=== PATIENT | female | born 1985 | race Caucasian/White ===

== ENCOUNTER 2019-03-09 13:53 | Observation (INO) | payer MEDICAID, SELFPAY ==
--- NOTE | 2019-03-09 14:13 | PCM.HP.STD ---
Problem List (1) Heroin withdrawal Status: Acute History of Present Illness Date of Admission: 03/09/19 Chief Complaint: Nausea, yawning, myalgias. The patient is a 33 year old F who injects heroin, last use was at 1700 on the seventh. Since then, patient's been experiencing significant withdrawal symptoms with nausea, abdominal cramps, myalgias, yawning, lacrimation, rhinitis. Patient had gone through withdrawal treatment about 4 months ago and was doing well for about 3 months and then missed a doctor's appointment and then started using again and has been using daily since. Occasionally she will smoke crack cocaine and marijuana. [] Past Medical History Psychiatric History: Anxiety, Depression Smoking Status: Light Smoker (<10/day) Tobacco Use: Cigarettes Alcohol: None Drugs: Cocaine, Heroin, Marijuana - *Family History Maternal Family History: Family History (Last Updated 03/09/19 @ 14:15 by Aguila Champion DO) Other Alcoholism Review of Systems Constitutional: Reports: Chills, Malaise. Denies: Anorexia, Fever, Night Sweats Eyes: Denies: Blurred vision, Double vision HEENT: Denies: Head Aches, Sinus Congestion, Sinus Drainage Cardiovascular: Denies: Chest Pain, Palpitations Respiratory: Denies: Cough, Shortness of breath at rest, Sputum production Gastrointestinal: Reports: Abdominal Pain, Nausea. Denies: Vomiting Genitourinary: Denies: Dysuria Musculoskeletal: Denies: Joint Pain, Joint Tenderness Skin: Denies: Dryness, Jaundice Neurological: Denies: Balance problems, Blurred vision, Double vision, Change in Speech Psychiatric: Reports: Anxiety, Depression Hematologic/ Lymphatic: Denies: Easy Bruising, Easy Bleeding, Hx of blood clot Comment: A 10 point review of systems were negative except as mentioned in the history of present illness and the other review of systems. VTE Information - Inpt Only VTE Present on Admission: No VTE Mechan Device Prophylaxis: None VTE Pharm Prophylaxis ordered?: No Patient Problems: Active and Suspected Problems Heroin withdrawal (Acute) - Physical Exam General: Alert, No apparent distress, - - Anxious. Appears older than stated age. HEENT: Atraumatic, Normocephalic Oral: Moist Mucosa, No Gingival or Mucosal Lesions/ Ulcerations Neck: No Nodes, Thyroid Normal Size and Texture Lungs: Clear to auscultation, Normal air movement, No rhonchi, No wheeze Cardiovascular: Regular rate, Regular Rhythm, Normal S1, Normal S2, No murmurs Abdomen: Bowel Sounds Present, Soft, Non Tender, Non-Distended, No Hepato-splenomegaly Extremities: No edema, No Calf Tenderness Skin: - - Chronic scarring of the upper extremities. No evidence of any cellulitis. Psych/Mental Status: Appropriate, Anxious Assessment/Plan All Active Problems Heroin withdrawal (Acute) 1. Acute heroin withdrawal Intake CINA is 16 Patient will be initiated on buprenorphine taper and will have other medications to help with other somatic complaints associated with her withdrawal. Patient informed that the buprenorphine will be given scheduled but the other medications will be as needed [facility] to work with the patient in finding and facility after discharge to continue with her addiction treatment. 2. VT prophylaxis: Low risk. No chemical nor mechanical prophylaxis indicated at this time Code Visit Inpatient E&M: 74571 Init Hosp L2
[2019-03-09 14:15] VITALS: BMI 25.0
--- NOTE | 2019-03-09 14:18 | HP.PCM_ITS ---
Problem List (1) Heroin withdrawal Status: Acute History of Present Illness Date of Admission: 03/09/19 Chief Complaint: Nausea, yawning, myalgias. The patient is a 33 year old F who injects heroin, last use was at 1700 on the seventh. Since then, patient's been experiencing significant withdrawal symptoms with nausea, abdominal cramps, myalgias, yawning, lacrimation, rhinitis. Patient had gone through withdrawal treatment about 4 months ago and was doing well for about 3 months and then missed a doctor's appointment and then started using again and has been using daily since. Occasionally she will smoke crack cocaine and marijuana. [] Past Medical History Psychiatric History: Anxiety, Depression Smoking Status: Light Smoker (<10/day) Tobacco Use: Cigarettes Alcohol: None Drugs: Cocaine, Heroin, Marijuana - *Family History Maternal Family History: Family History (Last Updated 03/09/19 @ 14:15 by Aguila Champion DO) Other Alcoholism Review of Systems Constitutional: Reports: Chills, Malaise. Denies: Anorexia, Fever, Night Sweats Eyes: Denies: Blurred vision, Double vision HEENT: Denies: Head Aches, Sinus Congestion, Sinus Drainage Cardiovascular: Denies: Chest Pain, Palpitations Respiratory: Denies: Cough, Shortness of breath at rest, Sputum production Gastrointestinal: Reports: Abdominal Pain, Nausea. Denies: Vomiting Genitourinary: Denies: Dysuria Musculoskeletal: Denies: Joint Pain, Joint Tenderness Skin: Denies: Dryness, Jaundice Neurological: Denies: Balance problems, Blurred vision, Double vision, Change in Speech Psychiatric: Reports: Anxiety, Depression Hematologic/ Lymphatic: Denies: Easy Bruising, Easy Bleeding, Hx of blood clot Comment: A 10 point review of systems were negative except as mentioned in the history of present illness and the other review of systems. VTE Information - Inpt Only VTE Present on Admission: No VTE Mechan Device Prophylaxis: None VTE Pharm Prophylaxis ordered?: No Patient Problems: Active and Suspected Problems Heroin withdrawal (Acute) - Physical Exam General: Alert, No apparent distress, - - Anxious. Appears older than stated age. HEENT: Atraumatic, Normocephalic Oral: Moist Mucosa, No Gingival or Mucosal Lesions/ Ulcerations Neck: No Nodes, Thyroid Normal Size and Texture Lungs: Clear to auscultation, Normal air movement, No rhonchi, No wheeze Cardiovascular: Regular rate, Regular Rhythm, Normal S1, Normal S2, No murmurs Abdomen: Bowel Sounds Present, Soft, Non Tender, Non-Distended, No Hepato- splenomegaly Extremities: No edema, No Calf Tenderness Skin: - - Chronic scarring of the upper extremities. No evidence of any cellulitis. Psych/Mental Status: Appropriate, Anxious Assessment/Plan All Active Problems Heroin withdrawal (Acute) 1. Acute heroin withdrawal * Intake CINA is 16 * Patient will be initiated on buprenorphine taper and will have other medications to help with other somatic complaints associated with her withdrawal. Patient informed that the buprenorphine will be given scheduled but the other medications will be as needed * [facility] to work with the patient in finding and facility after discharge to continue with her addiction treatment. 2. VT prophylaxis: Low risk. No chemical nor mechanical prophylaxis indicated at this time Code Visit Inpatient E&M: 08419 Init Hosp L2
[2019-03-09 14:41] VITALS: BMI 25.0
[2019-03-09] MEDS: Dicyclomine 10 MG Capsule 20 MG PO (14:41)
[2019-03-09] MEDS: Buprenorphine HCl 2 MG TAB.SUBL SL ×2 (14:41→23:07)
[2019-03-09] MEDS: cloNIDine HCl 0.1 MG Tablet PO ×3 (14:41→23:34)
[2019-03-09] MEDS: Pramipexole Di-HCl 0.25 MG Tablet PO (14:44)
[2019-03-09] MEDS: Methocarbamol 750 MG Tablet PO ×2 (14:44→23:34)
[2019-03-09 14:55] LABS: Amphetamine Urine VISTA NEGATIVE (<1000 ng/mL); Barbiturate Urine VISTA NEGATIVE (< 200 ng/mL); Benzodiazepine Urine VISTA NEGATIVE (< 200 ng/mL); Cocaine Urine VISTA POSITIVE (< 300 ng/mL); Ecstacy Urine VISTA NEGATIVE (< 500 ng/mL); Methadone Urine VISTA NEGATIVE (< 300 ng/mL); PCP Urine VISTA NEGATIVE (< 25 ng/mL); THC Urine VISTA NEGATIVE (< 50 ng/mL); Vista UDS pH Range 6
[2019-03-09 15:20] LABS: Absolute Lymphocyte Count 1.15 X10^3/ul (0.83-4.51); Absolute Neutrophil Count 3.5 X10^3/uL (2.0-7.7); Basophil# 0.03 X10^3/uL; Basophil% 0.6 % (0-1); Eosinophil# 0.01 X10^3/uL; Eosinophils% 0.2 % (0-5); Hematocrit 43.1 % (37-47); Lymphocyte # 1.15 X10^3/ul (4.0); Lymphocyte % 23.6 % (19-41); Mean Corp Hgb Conc 32.5 g/gl (32-36); Mean Corpuscular Hgb 28.2 pg (27.0-32.0); Mean Corpuscular Volume 86.7 fL (81-99); Mean Platelet Vol. 10.4 fl (6.2-12.0); Monocyte% 4.1 % (0-10); Neutrophil # 3.47 X10^3/uL (2.7-7.7); Neutrophil % 71.3 % (47-70); POSITIVE COUNT NO; POSITIVE DIFFERENTIAL NO; POSITIVE MORPHOLOGY NO; Platelet Count 175 K/mm3 (150-450); RBC Distribution Width CV 14.6 % (11.6-14.6); RBC Distribution Width SD 46.5 fl (35.1-43.9); Red Blood Count 4.97 M/mm3 (4.2-5.4); White Blood Count 4.9 K/mm3 (4.4-11.0)
[2019-03-09 15:37] LABS: ALB/GLOB Ratio 0.9 RATIO (0.9-2.4); AST(SGOT) 65 U/L (15-37); Alanine Aminotransfer ALT/SGPT 142 U/L (13-56); Albumin, Serum 3.7 g/dL (3.2-5.0); Alkaline Phosphatase 71 U/L (45-117); Anion Gap 4 (5-15); BUN 10 mg/dL (7-18); BUN/Creat Ratio 11.5 RATIO (10-20); Calcium,Total 8.9 mg/dL (8.5-10.1); Chloride 103 mmol/L (98-107); Creatinine, Serum 0.87 mg/dL (0.55-1.02); EST Glomerular Filtration Rate 80 mL/min (>60); Est Glom Filt Rate - Afr Amer 97 mL/min (>60); Estimated Creatinine Clearance 100.39 ml/min; Glucose 105 mg/dL (74-106); Potassium 4.3 mmol/L (3.5-5.1); Protein, Total 7.7 g/dL (6.4-8.2); Sodium Level 138 mmol/L (136-145)
[2019-03-09 15:38] LABS: Pregnancy, Serum, hCG Quali. NEGATIVE Negative (0-9 Nonpreg)
[2019-03-09 16:20] VITALS: BP 120/81; PULSE 61; RESP 14; TEMP 36.8
[2019-03-09 18:00] VITALS: BP 109/70; PULSE 76; RESP 14; TEMP 36.7
[2019-03-09 20:00] VITALS: BP 98/63; PULSE 61; RESP 16; TEMP 36.8
[2019-03-09] MEDS: traZODone 50 MG Tablet PO (23:07)
[2019-03-09] MEDS: hydrOXYzine PAM 25 MG Capsule 50 MG PO (23:07)
[2019-03-09 23:28] VITALS: BP 110/75; PULSE 73; RESP 16; TEMP 36.6
[2019-03-10 03:35] VITALS: BP 88/55; PULSE 54; RESP 16; TEMP 36.7
[2019-03-10 06:08] VITALS: BP 91/56; PULSE 56; RESP 16; TEMP 36.6
[2019-03-10] MEDS: Buprenorphine HCl 2 MG TAB.SUBL SL ×3 (06:13→22:29)
--- NOTE | 2019-03-10 09:43 | PN_ITS ---
Patient Problems: Active and Suspected Problems Heroin withdrawal (Acute) Subjective: The patient is a 33-year-old female with a past medical history of hepatitis C admitted to the [facility] program for acute opiate withdrawal. Withdrawal symptoms at admission included nausea, abdominal pain, myalgias, lacrimation and rhinitis. She has previously been in a withdrawal treatment program, about 4 months ago, and did well for 3 months. She then missed a doctor's appointment and started using again. In addition to heroin she occasionally will smoke crack cocaine and marijuana. The [facility] protocol for acute opiate withdrawal was initiated at admission and the patient is currently on a buprenorphine taper. Significant lab included an increased AST at 65 and an ALT of 142. Bilirubin and alkaline phosphatase are within normal limits. Serum test was negative. Drug screen was positive for cocaine and opiates. She is afebrile. Heart rate and blood pressure have decreased since admission, likely secondary to multiple medications for acute opiate withdrawal. She is asymptomatic. She admits to sharing needles and knows that she shared a needle with somebody who later turned positive for hepatitis B. Her last HIV was 2 years ago and was negative. Symptoms are adequately controlled other than feeling anxious and a little sweaty. She is complaining of vaginal discharge but denies dysuria or vaginal itching. Has had Chlamydia in the past. Denies Gonorrhea and syphilis Objective: PHYSICAL EXAM: GENERAL: alert, oriented X 3, Cooperative, NAD ORAL: moist mucosa, no mucosal lesions NECK: No JVD, supple, trachea midline LUNGS: CTA, symmetric chest expansion HEART: RRR, Normal S1 and S2, no rub, no gallop ABDOMEN: soft, NT, ND, BS present, no guarding with palpation EXTREMITIES: no edema, no cyanosis, no calf tenderness SKIN: No rashes, no breakdown, no evidence of cellulitis secondary to injections NEUROLOGIC: no focal neurologic deficits PSYCH: appropriate, normal affect, pleasant - Physical Exam Vital Signs Temp Pulse Resp BP 97.8 F 56 L 16 91/56 L 03/10/19 06:08 03/10/19 06:08 03/10/19 06:08 03/10/19 06:08 Weight: 174 lb Body Mass Index (BMI) 25.0 Intake and Output for Last 24 Hours 03/08/19 03/09/19 03/10/19 23:59 23:59 23:59 Intake Total 400 / 400 Balance 400 / 400 Laboratory Tests Past 24 Hrs 03/09/19 03/09/19 03/09/19 14:15 14:55 14:55 WBC 4.9 RBC 4.97 Hgb 14.0 Hct 43.1 MCV 86.7 MCH 28.2 MCHC 32.5 RDW 14.6 RDW Differential 46.5 H Plt Count 175 MPV 10.4 Immature Gran % (Auto) 0.200 Neut % (Auto) 71.3 H Lymph % (Auto) 23.6 [place] % (Auto) 4.1 Eos % (Auto) 0.2 Baso % (Auto) 0.6 Absolute Neuts (auto) 3.5 Absolute Lymphs (auto) 1.15 Total Counted Not Reportable Sodium 138 Potassium 4.3 Chloride 103 Carbon Dioxide 31.0 Anion Gap 4 L BUN 10 Creatinine 0.87 Estim Creat Clear Calc 100.39 Est GFR (MDRD) Af Amer 97 Est GFR (MDRD) Non-Af 80 BUN/Creatinine Ratio 11.5 Glucose 105 Calcium 8.9 Total Bilirubin 0.40 AST 65 H ALT 142 H Alkaline Phosphatase 71 Total Protein 7.7 Albumin 3.7 Globulin 4.0 Albumin/Globulin Ratio 0.9 Serum , Qual Urine Opiates Screen POSITIVE H Urine Methadone Screen NEGATIVE Ur Barbiturates Screen NEGATIVE Ur Phencyclidine Scrn NEGATIVE Ur Amphetamines Screen NEGATIVE U Methamphetamin-MDMA NEGATIVE U Benzodiazepines Scrn NEGATIVE Urine Cocaine Screen POSITIVE H U Cannabinoids Screen NEGATIVE Ur Drug Screen Comment 03/09/19 14:55 WBC RBC Hgb Hct MCV MCH MCHC RDW RDW Differential Plt Count MPV Immature Gran % (Auto) Neut % (Auto) Lymph % (Auto) [place] % (Auto) Eos % (Auto) Baso % (Auto) Absolute Neuts (auto) Absolute Lymphs (auto) Total Counted Sodium Potassium Chloride Carbon Dioxide Anion Gap BUN Creatinine Estim Creat Clear Calc Est GFR (MDRD) Af Amer Est GFR (MDRD) Non-Af BUN/Creatinine Ratio Glucose Calcium Total Bilirubin AST ALT Alkaline Phosphatase Total Protein Albumin Globulin Albumin/Globulin Ratio Serum , Qual NEGATIVE Urine Opiates Screen Urine Methadone Screen Ur Barbiturates Screen Ur Phencyclidine Scrn Ur Amphetamines Screen U Methamphetamin-MDMA U Benzodiazepines Scrn Urine Cocaine Screen U Cannabinoids Screen Ur Drug Screen Comment Medical Necessity - Tobacco Use Smoking Status: Light Smoker (<10/day) Tobacco Use: Cigarettes Assessment/Plan All Active Problems Heroin withdrawal (Acute) Impressions 1. Acute heroin withdrawal. On a buprenorphine taper. Interested in Vivitrol post discharge. 2. Hepatitis C. Shares needles. 3. Vaginitis - will do a bedside pelvic later today. 4. Tobacco dependence Hepatitis panel, HIV Continue [facility] protocol for acute opiate withdrawal Code Visit Inpatient E&M: 89362 Subs Hosp L2
[2019-03-10 10:00] VITALS: BP 118/72; PULSE 63; RESP 14; TEMP 36.3
[2019-03-10] MEDS: hydrOXYzine PAM 25 MG Capsule 50 MG PO ×2 (10:20→20:34)
[2019-03-10] MEDS: Acetaminophen 500 MG Tablet PO ×2 (10:20→20:34)
[2019-03-10] MEDS: Pramipexole Di-HCl 0.25 MG Tablet PO (10:20)
--- NOTE | 2019-03-10 11:05 | NEWVISION ---
Addendum entered by Shaneka Fleming 03/12/19 08:01: Patient reports that she may have issues with transportation on day of discharge. [facility] to provide Medicaid transportation information for patient to call if needed. Original Note: Patient has appointment at [facility] on 03/12/2019 at 3pm for MAT assessment ([place]). Please discharge patient by 11am on day of discharge.
[2019-03-10 12:03] LABS: HIV - WCH Non-Reactive (Nonreactive)
[2019-03-10 14:00] VITALS: BP 87/54; PULSE 63; RESP 14; TEMP 37.1
[2019-03-10] MEDS: Ibuprofen 600 MG Tablet PO (14:56)
[2019-03-10 22:26] VITALS: BP 100/69; PULSE 67; RESP 16; TEMP 36.6
[2019-03-10] MEDS: traZODone 50 MG Tablet PO (22:29)
[2019-03-10] MEDS: cloNIDine HCl 0.1 MG Tablet PO (22:33)
[2019-03-11 05:56] VITALS: BP 95/53; PULSE 55; RESP 14; TEMP 36.6
[2019-03-11] MEDS: Buprenorphine HCl 2 MG TAB.SUBL SL ×2 (06:00→18:47)
[2019-03-11] MEDS: Ibuprofen 600 MG Tablet PO ×2 (06:43→14:43)
[2019-03-11] MEDS: hydrOXYzine PAM 25 MG Capsule 50 MG PO (06:43)
[2019-03-11 07:46] VITALS: BP 107/69; PULSE 56; RESP 18; TEMP 36.6
[2019-03-11] MEDS: Methocarbamol 750 MG Tablet PO (07:50)
[2019-03-11] MEDS: Pramipexole Di-HCl 0.25 MG Tablet PO ×2 (07:50→21:45)
[2019-03-11 07:51] VITALS: PULSE 56
--- NOTE | 2019-03-11 09:26 | PCM.PROGNOTE ---
Patient Problems: Active and Suspected Problems Heroin withdrawal (Acute) Subjective: Afebrile Vital signs stable Good oral intake HIV is nonreactive Hepatitis panel is pending No complaints other than vaginal DC and some odor. 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 - Physical Exam General: Alert, Oriented x3, Cooperative, No apparent distress Oral: Moist Mucosa Lungs: Clear to auscultation Cardiovascular: Regular rate, Regular Rhythm Abdomen: Bowel Sounds Present, Soft, Non Tender, Non-Distended, - - The Labia minora have a small small ulceration on both sides consistent with Herpes. The external vaginal exam is otherwise unremarkable. There is yellow malodorous DC in the Vaginal vault and a culture was sent. Negative chandilier's sign. Cervix appeared normal and was without lesions. She has not had a PAP in at least 3 years and she has a hx of STD. I encouraged her to go get a PAP ....we discussed HPV and she should be tested. Extremities: No edema Skin: No rashes Psych/Mental Status: Normal Affect, Appropriate Vital Signs Temp Pulse Resp BP 97.9 F 56 L 18 107/69 03/11/19 07:46 03/11/19 07:51 03/11/19 07:46 03/11/19 07:46 Oxygen Delivery Method Room Air Weight: 174 lb Body Mass Index (BMI) 25.0 Intake and Output for Last 24 Hours 03/09/19 03/10/19 03/11/19 23:59 23:59 23:59 Intake Total 400 / 400 1500 / 1500 Balance 400 / 400 1500 / 1500 Laboratory Tests Past 24 Hrs 03/10/19 03/10/19 10:20 10:20 Hepatitis A IgM Ab Pending Hepatitis A Ab Total Pending Hep Bs Antigen Pending Hep B Core Total Ab Pending Hep B Core IgM Ab Pending HIV 1&2 Antibody Non-Reactive Medical Necessity - Tobacco Use Smoking Status: Light Smoker (<10/day) Tobacco Use: Cigarettes Assessment/Plan All Active Problems Heroin withdrawal (Acute) Impressions 1. Acute heroin withdrawal. On a buprenorphine taper. Interested in Vivitrol post discharge. 2. Hepatitis C. Shares needles. 3. Vaginitis - will do a bedside pelvic later today. 4. Tobacco dependence 5. Hepatitis B positive with persistently + HepBsAG - chronic active hep B Urine sample sent for GC and chlamydia swab of Vaginal DC sent for culture.....suspect she has bacterial vaginosis Start Flagyl and Acyclovir - not a primary herpes infection Await the results of the GC/chlamydia testing Continue buprenorphine taper she has set up an appointment to start Vivitrol as an outpatient. I advised her to have a Pap smear done after treatment for herpes and bacterial vaginosis has completed and especially to be tested for HPV Discussed the results of the hepatitis panel with the patient and recommended that after 6 months of sobriety she follow-up with infectious disease to be treated for hepatitis C Code Visit Inpatient E&M: [id number] Subs Hosp L3
[2019-03-11 12:06] LABS: HEPATITIS B SURFACE AG Confirm. indicated (Negative); Hepatitis A AB, Total Negative (Negative); Hepatitis A IgM Antibody Negative (Negative); Hepatitis B Core AB IgM Negative (Negative); Hepatitis B Core Ab Total Positive (Negative)
--- NOTE | 2019-03-11 13:07 | CHAPLAIN ---
Type of Pastoral Visit _x__ Initial Visit ___ Follow-up Visit ___ On-call Visit ___ General Patient Visit ___ Spiritual Assessment ___ Family Conference ___ Bereavement ___ Rapid Response ___ Code Blue ___ Other (describe below) Pastoral Care Referral From _x__ Patient ___ Family ___ Nurse ___ Physician ___ Manager Hematology ___ Volleyball Referee _x__ Other (describe below) Sacrament/Intervention _x__ Active listening ___ Anointing ___ Anabaptist ___ Bereavement ___ Communion ___ Ines exploration ___ _x__ Life review _x_ Prayer ___ Reconciliation ___ Sacrament of Sick _x__ Supportive presence ___ Wedding ___ Other (describe below) Pastoral Comments patient commented at end of visit that she appreciated the thoughtful prayer and the encouraging words; pt says that most of her family is unaware of her addiction and of her hospital stay; pt has a best friend that is 5 years clean and is a big inspiration; pt wants to try different approach to recovery than in the past; pt open to spiritual support
[2019-03-11 13:37] LABS: Chlamydia Trachomatis by PCR POSITIVE (Negative); Neisserai gonorrhoeae by PCR Negative (Negative); Probe Check PASS; Sample Adequacy Control PASS; Specimen Processing Control PASS
[2019-03-11] MEDS: metroNIDAZOLE 500 MG Tablet PO ×2 (14:40→21:42)
[2019-03-11] MEDS: Acyclovir 200 MG Capsule 400 MG PO ×2 (14:40→21:42)
[2019-03-11 14:43] VITALS: BP 106/68; PULSE 73; RESP 18; TEMP 36.9
[2019-03-11] MEDS: cloNIDine HCl 0.1 MG Tablet PO ×2 (14:43→21:08)
[2019-03-11 15:20] LABS: HBsAg Confirmation Positive (.); Hep B Surface Antibodies Non Reactive (.)
[2019-03-11 15:23] LABS: Hepatitis C Ab >11.0 s/co ratio (0.0-0.9)
[2019-03-11] MEDS: Azithromycin 250 MG Tablet 1000 MG PO (18:46)
[2019-03-11] MEDS: Dicyclomine 10 MG Capsule 20 MG PO (21:08)
[2019-03-11] MEDS: traZODone 50 MG Tablet PO (21:42)
[2019-03-11 21:48] VITALS: BP 107/73; PULSE 62; RESP 16; TEMP 36.4
[2019-03-12] MEDS: Buprenorphine HCl 2 MG TAB.SUBL SL (05:46)
[2019-03-12] MEDS: Ibuprofen 600 MG Tablet PO (05:47)
[2019-03-12] MEDS: Acyclovir 200 MG Capsule 400 MG PO (05:47)
[2019-03-12] MEDS: metroNIDAZOLE 500 MG Tablet PO (05:47)
[2019-03-12 05:48] VITALS: BP 108/74; PULSE 56; RESP 16; TEMP 36.9
[2019-03-12 08:22] VITALS: BP 110/72; PULSE 62; RESP 18; TEMP 36.8
--- NOTE | 2019-03-12 10:20 | DCINST_ITS ---
- Discharge Diagnoses Current Active Problems: Current Active and Chronic Problems Heroin withdrawal (Acute) You will use the following diet at home:: No restrictions Your food should be the consistency of: Regular Your liquids should be the consistency of: Regular/Thin Discharge Activity: Return to Normal Activity Instructions: Understanding Hepatitis C (HCV), Understanding Hepatitis B (HBV), Treating Hepatitis B (HBV), Hepatitis C: Preventing the Spread, Herpes: Caring for Sores, Living with Herpes, Chlamydia Additional Instructions: The Hep B is active and you should follow up with your PCP to have the hepatitis panel rechecked in 6 weeks to see if HepsAG has been cleared from your blood. While you have HepBsAG (hepatitis B surface antigen) you are considered to have active Hep B with ongoing infection. Some people develop chronic active Hep B and this can seriously damage the liver....meghna if you also have hepatitis C. If you stay clean for 6 months follow up with an infectious disease doctor to get the Hep C treated. If your eye or skin turn yellow or you get very tired go to a doctor immediately and have the liver enzymes checked. You had chlamydia. We treated you for this with a single dose of Azithromycin 1 GM and you will not need any additional treatment. The gonorrhea was negative. The vaginal culture is still pending.....I will follw the results and call you if there is anything growing. I am keeping you on Flagyl to treat for bacterial infection. Herpes genitalis can be recurrent. Usually the recurrences are not as painful as the initial infection. If you have infrequent recurrences you can be treated with Valtrex 500 mg twice daily for 5 days. If the recurrences are freequent then you will need to be on chronic suppression with Valtrex. You need to get a PAP smear and tested for HPV. HPV is another sexually transmitted virus that is a major cause of cervical cancer........There is a vaccine available if you are negative for HPV. ALWAYS use condoms. You are contagious with Hep B and Hep C at this time and you do not want to spread the disease. You can also spread Herpes even if you do not have active lesions. You are HIV negative......protect yourself from getting any more STD's USE CONDOMS AND DO NOT SHARE NEEDLES. Pending Tests on Discharge: VAGINAL CULTURE Allergies/Adverse Reactions: Allergies No Known Allergies Allergy (Verified 03/09/19 14:16) Medications to take at Discharge Metronidazole [Flagyl] 500 mg PO TID #12 tab 03/12/19 Valacyclovir HCl [Valtrex] 500 mg PO BID #8 tab 03/12/19 The following prescriptions were given: Valacyclovir HCl [Valtrex] 500 mg PO BID #8 tab Metronidazole [Flagyl] 500 mg PO TID #12 tab Primary Care Physician: Care Physician,No Primary [Primary Care Provider] - Test Results: Test results from this visit will be discussed in further detail at your follow- up appointment, if applicable. Proposed Discharge Date: 03/12/19
--- NOTE | 2019-03-12 10:49 | DS.PCM_ITS ---
Discharge Date and Diagnosis - Problem List Patient Problems: Active and Suspected Problems Hepatitis B (Acute) Bacterial vaginosis (Suspected) Herpes genitalis (Acute) Chlamydia infection (Acute) Date of Admission: 03/09/19 Date of Discharge: 03/12/19 - Primary Discharge Diagnosis Active and Suspected Problems Hepatitis B (Acute)- Hep BsAG + and core AB + Bacterial vaginosis (Suspected) Herpes genitalis (Acute) Chlamydia infection (Acute) Heroin withdrawal (Acute) - Secondary Discharge Diagnosis Chronic Problems Hepatitis C antibody positive in blood (Chronic) Herpes genitalis Heroin dependence Tobacco dependence Hospital Course and Treatment Imaging Results: Laboratory Tests 03/11/19 03/10/19 03/10/19 Range/Units 10:55 10:20 10:20 WBC (4.4-11.0) K/mm3 RBC (4.2-5.4) M/mm3 Hgb (12.0-15.0) g/dl Hct (37-47) % MCV (81-99) fL MCH (27.0-32.0) pg MCHC (32-36) g/gl RDW (11.6-14.6) % RDW Differential (35.1-43.9) fl Plt Count (150-450) K/mm3 MPV (6.2-12.0) fl Immature Gran % (Auto) (0.0-0.9) % Neut % (Auto) (47-70) % Lymph % (Auto) (19-41) % Blair % (Auto) (0-10) % Eos % (Auto) (0-5) % Baso % (Auto) (0-1) % Absolute Neuts (auto) (2.0-7.7) X10^3/uL Absolute Lymphs (auto) (0.83-4.51) X10^3/ul Total Counted Sodium (136-145) mmol/L Potassium (3.5-5.1) mmol/L Chloride (98-107) mmol/L Carbon Dioxide (21.0-32.0) mmol/L Anion Gap (5-15) BUN (7-18) mg/dL Creatinine (0.55-1.02) mg/dL Estim Creat Clear Calc ml/min Est GFR (MDRD) Af Amer (>60) mL/min Est GFR (MDRD) Non-Af (>60) mL/min BUN/Creatinine Ratio (10-20) RATIO Glucose (74-106) mg/dL Calcium (8.5-10.1) mg/dL Total Bilirubin (0.20-1.00) mg/dL AST (15-37) U/L ALT (13-56) U/L Alkaline Phosphatase (45-117) U/L Total Protein (6.4-8.2) g/dL Albumin (3.2-5.0) g/dL Globulin (2.2-4.2) g/dL Albumin/Globulin Ratio (0.9-2.4) RATIO Serum , Qual (0-9 Nonpreg) Negative Urine Opiates Screen (< 300 ng/mL) Urine Methadone Screen (< 300 ng/mL) Ur Barbiturates Screen (< 200 ng/mL) Ur Phencyclidine Scrn (< 25 ng/mL) Ur Amphetamines Screen (<1000 ng/mL) U Methamphetamin-MDMA (< 500 ng/mL) U Benzodiazepines Scrn (< 200 ng/mL) Urine Cocaine Screen (< 300 ng/mL) U Cannabinoids Screen (< 50 ng/mL) Ur Drug Screen Comment Chlam trachomat DNA PCR POSITIVE H (Negative) Hepatitis A IgM Ab Negative (Negative) Hepatitis A Ab Total Negative (Negative) Hep Bs Antigen Confirm. indicated (Negative) Hep Bs Ag Confirmation Positive H (.) Hep B Core Total Ab Positive H (Negative) Hep B Core IgM Ab Negative (Negative) Hepatitis C Ab Confirm >11.0 H (0.0-0.9) s/co ratio HIV 1&2 Antibody Non-Reactive (Nonreactive) N.gonorrhoeae DNA (PCR) Negative (Negative) 03/09/19 03/09/19 03/09/19 Range/Units 14:55 14:55 14:55 WBC 4.9 (4.4-11.0) K/mm3 RBC 4.97 (4.2-5.4) M/mm3 Hgb 14.0 (12.0-15.0) g/dl Hct 43.1 (37-47) % MCV 86.7 (81-99) fL MCH 28.2 (27.0-32.0) pg MCHC 32.5 (32-36) g/gl RDW 14.6 (11.6-14.6) % RDW Differential 46.5 H (35.1-43.9) fl Plt Count 175 (150-450) K/mm3 MPV 10.4 (6.2-12.0) fl Immature Gran % (Auto) 0.200 (0.0-0.9) % Neut % (Auto) 71.3 H (47-70) % Lymph % (Auto) 23.6 (19-41) % Blair % (Auto) 4.1 (0-10) % Eos % (Auto) 0.2 (0-5) % Baso % (Auto) 0.6 (0-1) % Absolute Neuts (auto) 3.5 (2.0-7.7) X10^3/uL Absolute Lymphs (auto) 1.15 (0.83-4.51) X10^3/ul Total Counted Not Reportable Sodium 138 (136-145) mmol/L Potassium 4.3 (3.5-5.1) mmol/L Chloride 103 (98-107) mmol/L Carbon Dioxide 31.0 (21.0-32.0) mmol/L Anion Gap 4 L (5-15) BUN 10 (7-18) mg/dL Creatinine 0.87 (0.55-1.02) mg/dL Estim Creat Clear Calc 100.39 ml/min Est GFR (MDRD) Af Amer 97 (>60) mL/min Est GFR (MDRD) Non-Af 80 (>60) mL/min BUN/Creatinine Ratio 11.5 (10-20) RATIO Glucose 105 (74-106) mg/dL Calcium 8.9 (8.5-10.1) mg/dL Total Bilirubin 0.40 (0.20-1.00) mg/dL AST 65 H (15-37) U/L ALT 142 H (13-56) U/L Alkaline Phosphatase 71 (45-117) U/L Total Protein 7.7 (6.4-8.2) g/dL Albumin 3.7 (3.2-5.0) g/dL Globulin 4.0 (2.2-4.2) g/dL Albumin/Globulin Ratio 0.9 (0.9-2.4) RATIO Serum , Qual NEGATIVE (0-9 Nonpreg) Negative Urine Opiates Screen (< 300 ng/mL) Urine Methadone Screen (< 300 ng/mL) Ur Barbiturates Screen (< 200 ng/mL) Ur Phencyclidine Scrn (< 25 ng/mL) Ur Amphetamines Screen (<1000 ng/mL) U Methamphetamin-MDMA (< 500 ng/mL) U Benzodiazepines Scrn (< 200 ng/mL) Urine Cocaine Screen (< 300 ng/mL) U Cannabinoids Screen (< 50 ng/mL) Ur Drug Screen Comment Chlam trachomat DNA PCR (Negative) Hepatitis A IgM Ab (Negative) Hepatitis A Ab Total (Negative) Hep Bs Antigen (Negative) Hep Bs Ag Confirmation (.) Hep B Core Total Ab (Negative) Hep B Core IgM Ab (Negative) Hepatitis C Ab Confirm (0.0-0.9) s/co ratio HIV 1&2 Antibody (Nonreactive) N.gonorrhoeae DNA (PCR) (Negative) 03/09/19 Range/Units 14:15 WBC (4.4-11.0) K/mm3 RBC (4.2-5.4) M/mm3 Hgb (12.0-15.0) g/dl Hct (37-47) % MCV (81-99) fL MCH (27.0-32.0) pg MCHC (32-36) g/gl RDW (11.6-14.6) % RDW Differential (35.1-43.9) fl Plt Count (150-450) K/mm3 MPV (6.2-12.0) fl Immature Gran % (Auto) (0.0-0.9) % Neut % (Auto) (47-70) % Lymph % (Auto) (19-41) % Blair % (Auto) (0-10) % Eos % (Auto) (0-5) % Baso % (Auto) (0-1) % Absolute Neuts (auto) (2.0-7.7) X10^3/uL Absolute Lymphs (auto) (0.83-4.51) X10^3/ul Total Counted Sodium (136-145) mmol/L Potassium (3.5-5.1) mmol/L Chloride (98-107) mmol/L Carbon Dioxide (21.0-32.0) mmol/L Anion Gap (5-15) BUN (7-18) mg/dL Creatinine (0.55-1.02) mg/dL Estim Creat Clear Calc ml/min Est GFR (MDRD) Af Amer (>60) mL/min Est GFR (MDRD) Non-Af (>60) mL/min BUN/Creatinine Ratio (10-20) RATIO Glucose (74-106) mg/dL Calcium (8.5-10.1) mg/dL Total Bilirubin (0.20-1.00) mg/dL AST (15-37) U/L ALT (13-56) U/L Alkaline Phosphatase (45-117) U/L Total Protein (6.4-8.2) g/dL Albumin (3.2-5.0) g/dL Globulin (2.2-4.2) g/dL Albumin/Globulin Ratio (0.9-2.4) RATIO Serum , Qual (0-9 Nonpreg) Negative Urine Opiates Screen POSITIVE H (< 300 ng/mL) Urine Methadone Screen NEGATIVE (< 300 ng/mL) Ur Barbiturates Screen NEGATIVE (< 200 ng/mL) Ur Phencyclidine Scrn NEGATIVE (< 25 ng/mL) Ur Amphetamines Screen NEGATIVE (<1000 ng/mL) U Methamphetamin-MDMA NEGATIVE (< 500 ng/mL) U Benzodiazepines Scrn NEGATIVE (< 200 ng/mL) Urine Cocaine Screen POSITIVE H (< 300 ng/mL) U Cannabinoids Screen NEGATIVE (< 50 ng/mL) Ur Drug Screen Comment Chlam trachomat DNA PCR (Negative) Hepatitis A IgM Ab (Negative) Hepatitis A Ab Total (Negative) Hep Bs Antigen (Negative) Hep Bs Ag Confirmation (.) Hep B Core Total Ab (Negative) Hep B Core IgM Ab (Negative) Hepatitis C Ab Confirm (0.0-0.9) s/co ratio HIV 1&2 Antibody (Nonreactive) N.gonorrhoeae DNA (PCR) (Negative) none Operations: None Summary of Care Provided: Subjective: The patient is a 33-year-old female with a past medical history of hepatitis C, herpes Genitalis, genital chlamydia infection in the past and nicotine dependence who was admitted to the [facility] for acute opiate withd trevor. Withdrawal symptoms at admission included nausea, abdominal pain, myalgias, lacrimation and rhinitis. She had previously been in a withdrawal treatment program, about 4 months ago, and did well for 3 months on Suboxone. She then missed a doctor's appointment and started using heroin again. In addition to heroin she occasionally will smoke crack cocaine and marijuana. The [facility] protocol for acute opiate withdrawal was initiated at admission and the patient was started on a buprenorphine taper. Significant lab included an increased AST at 65 and an ALT of 142. Bilirubin and alkaline phosphatase are within normal limits. Serum test was negative. Drug screen was positive for cocaine and opiates. On the second day she complained of pain when urinating and a vaginal DC. A pelvic exam revealed ulcerations of the labia consistent with recurrent Herpes infection. There was a malodorous yellow vaginal DC and chlamydia was +. GC was negative. Results of the vaginal culture are still pending at the time of DC. She was treated with 1 g of azithromycin for chlamydia infection. She was started on acyclovir for recurrent herpes and metronidazole for suspected bacterial vaginosis. Hepatitis panel was positive for hepatitis C and also for hepatitis B surface antigen and hepatitis B core antibody the hepatitis B core IgM antibody was negative. An HIV was negative. On 03/12/2019 she was afebrile with stable vital signs. She was alert and oriented x3 and appropriate. She had no withdrawal symptoms. She has an appointment on 03/12/2019 to start treatment with Vivitrol. She was advised to follow-up with an [facility] as soon as possible for a Pap smear. She has not had a Pap smear in many years and has had sexually transmitted diseases. To her knowledge she has never been tested for HPV. She was also instructed to follow- up with an infectious disease physician after she has had 6 months of sobriety for treatment for hepatitis C. She will follow-up with her primary care physician in 6 weeks to have a repeat liver panel and hepatitis panel to see if the hepatitis B surface antigen has cleared. She will use condoms with every sexual encounter and not sharing needles. GENERAL: alert, oriented X 3, Cooperative, NAD ORAL: moist mucosa, no mucosal lesions NECK: No JVD, supple, trachea midline LUNGS: CTA, symmetric chest expansion HEART: RRR, Normal S1 and S2, no rub, no gallop ABDOMEN: soft, NT, ND, BS present, no guarding with palpation EXTREMITIES: no edema, no cyanosis, no calf tenderness SKIN: No rashes, no breakdown, no evidence of cellulitis secondary to injections NEUROLOGIC: no focal neurologic deficits PSYCH: appropriate, normal affect, pleasant This note was generated with [employer] dictation software. It may contain incorrect words, spelling, and punctuation that were not noted in checking the note before signing. Patient Problems: Active and Suspected Problems Hepatitis B (Acute) Bacterial vaginosis (Suspected) Herpes genitalis (Acute) Chlamydia infection (Acute) - Physical Exam Vital Signs Temp Pulse Resp BP 98.2 F 62 18 110/72 03/12/19 08:22 03/12/19 08:22 03/12/19 08:22 03/12/19 08:22 Oxygen Delivery Method Room Air Weight: 174 lb Body Mass Index (BMI) 25.0 Intake and Output for Last 24 Hours 03/10/19 03/11/19 03/12/19 23:59 23:59 23:59 Intake Total 1979 1500 / 1500 Balance 1979 1500 / 1500 Microbiology Past 72 Hours 03/11/19 10:55 Gram Stain - Final Genital vaginal Laboratory Tests Past 24 Hrs 03/10/19 03/11/19 10:20 10:55 Chlam trachomat DNA PCR POSITIVE H Hepatitis A IgM Ab Negative Hepatitis A Ab Total Negative Hep Bs Antigen Confirm. indicated Hep Bs Ag Confirmation Positive H Hep B Core Total Ab Positive H Hep B Core IgM Ab Negative Hepatitis C Ab Confirm >11.0 H N.gonorrhoeae DNA (PCR) Negative Discharge Activity: Return to Normal Activity Home Medications: Medications to take at Discharge Metronidazole [Flagyl] 500 mg PO TID #12 tab 03/12/19 Valacyclovir HCl [Valtrex] 500 mg PO BID #8 tab 03/12/19 Following Prescrptions Were Given to Patient: Valacyclovir HCl [Valtrex] 500 mg PO BID #8 tab Metronidazole [Flagyl] 500 mg PO TID #12 tab Primary Care Physician: Care Physician,No Primary [Primary Care Provider] - Patient Instructions: Understanding Hepatitis C (HCV), Treating Hepatitis B (HBV), Understanding Hepatitis B (HBV), Chlamydia, Herpes: Caring for Sores, Hepatitis C: Preventing the Spread, Living with Herpes Disposition: Home Minutes spent on discharge:: 30 Patient Condition:: Good Medical Necessity - Tobacco Use Smoking Status: Current every day smoker Tobacco Use: Cigarettes, - - Marijuana occasionally Meaningful Use Info Meaningful Use Diagnoses (Choose all that apply): None applicable Code Visit Inpatient E&M: 21009 Disch Hosp
== END 2019-03-12 10:45 | disposition home or self-care (01) | DRG 773 ==
PROVIDERS: Visit Provider Internal Medicine
DX: F11.23 Opioid dependence with withdrawal (principal); B19.20 Unspecified viral hepatitis C without hepatic coma; F17.210 Nicotine dependence, cigarettes, uncomplicated; B18.1 Chronic viral hepatitis B without delta-agent; A60.00 Herpesviral infection of urogenital system, unspecified; A56.02 Chlamydial vulvovaginitis
CPT/HCPCS: 36415; 80053; 80307; 84703; 85025; 86703; 86704; 86705; 86706; 86708; 86709; 86803; 87070; 87205; 87340; 87491; 87591; 99218; G0378; G0379

== ENCOUNTER 2021-05-26 15:15 | Observation (INO) | payer MEDICAID, SELFPAY ==
[2021-05-26 15:16] VITALS: BP 125/77; PULSE 71; RESP 16; TEMP 36.1; O2SAT 98; BMI 28.7
[2021-05-26 16:15] LABS: Amphetamine Urine VISTA POSITIVE (<1000 ng/mL); Barbiturate Urine VISTA NEGATIVE (< 200 ng/mL); Benzodiazepine Urine VISTA NEGATIVE (< 200 ng/mL); Cocaine Urine VISTA NEGATIVE (< 300 ng/mL); Ecstacy Urine VISTA POSITIVE (< 500 ng/mL); Methadone Urine VISTA NEGATIVE (< 300 ng/mL); PCP Urine VISTA NEGATIVE (< 25 ng/mL); THC Urine VISTA NEGATIVE (< 50 ng/mL); Vista UDS pH Range 6
--- NOTE | 2021-05-26 16:23 | EX.ED.SAOD ---
HPI History of Present Illness Chief Complaint: Substance Abuse Informant: patient Narrative Narrative: Patient is a 35-year-old female with history of hepatitis B, hepatitis C and opioid dependency presenting for request of opioid detox. Patient states she has been using IV heroin/fentanyl regularly for the past 3 months. She last used at 10 AM this morning. She has a cannot really use methamphetamines as well. She denies any alcohol use. She does smoke cigarettes daily. She states she is been using regularly for 3 months before that was sober for about 3 months. Patient denies any other complaints at this time. Patient last admitted to [facility] for heroin withdraw in March 2019. [facility] Medical History Substance abuse Home Medications metronidazole 500 mg PO TID #12 tab 03/12/19 [Rx Last Taken Unknown] valacyclovir 500 mg PO BID #8 tab 03/12/19 [Rx Last Taken Unknown] Allergy/AdvReac Type Severity Reaction Status Date / Time No Known Allergies Allergy Verified 05/26/21 15:17 Family History Other Alcoholism Social History Smoking Status: Light Smoker (<10/day) ROS [facility] ED Constitutional Constitutional ED: Denies chills, fever(s) or malaise Eyes Eyes: Denies blurry vision or loss of vision ENT ENT ED: Denies rhinorrhea or sore throat Cardiovascular Cardiovascular: Denies chest pain or dizziness Respiratory/Chest Respiratory/Chest: Denies cough or dyspnea Gastrointestinal Gastrointestinal: Denies nausea or vomiting Genitourinary Genitourinary ED: Denies dysuria or hematuria Musculoskeletal Musculoskeletal: Denies arthralgias or myalgias Integumentary Denies rash or wounds Neurologic Neurologic: Denies focal weakness or headache(s) Psychiatric Psychiatric: Denies anxiety or behavioral changes EXAM Physical Exam Const Vital Signs: 05/26/21 15:16 Temperature 97 F L Temperature Source Temporal Pulse Rate 71 Respiratory Rate 16 Blood Pressure 125/77 H Blood Pressure Mean 93 Pulse Ox 98 Oxygen Delivery Method Room Air Positive well nourished and well developed General Appearance ED: well developed HEENT atraumatic Eyes PERRL and EOMs intact bilaterally Neck supple and no JVD Chest Wall inspection of chest normal Resp normal respiratory effort and clear to auscultation bilaterally Cardio regular rate, regular rhythm and no murmurs GI soft to palpation, non-tender and non-distended Extremity General Extremety ED: Negative for edema or tenderness General Extremity: Negative for edema Neuro oriented x3 Sensorium / Orientation: alert Psych mental status grossly normal Skin Skin Narrative: Scattered abrasions on the arms consistent with skin picking Rashes: no rashes MDM MDM MDM Narrative Medical decision making narrative: Patient is evaluated for request of opioid detox. Patient currently does not appear intoxicated. She is hemodynamically stable and does not appear to be in acute withdrawal at this time either. Will obtain screening labs and range admission for inpatient detox. Lab Data Labs: Laboratory Results - last 24 hr 05/26/21 15:47 Urine Opiates Screen POSITIVE H Urine Methadone Screen NEGATIVE Ur Barbiturates Screen NEGATIVE Ur Phencyclidine Scrn NEGATIVE Ur Amphetamines Screen POSITIVE H U Methamphetamin-MDMA POSITIVE H U Benzodiazepines Scrn NEGATIVE Urine Cocaine Screen NEGATIVE U Cannabinoids Screen NEGATIVE Ur Drug Screen Comment Discharge Plan Dx/Rx/DC Orders Clinical Impression: Opioid dependence Disposition Disposition: Acute Care Hospital [facility]
[2021-05-26 17:22] LABS: Absolute Lymphocyte Count 1.41 X10^3/uL (0.83-4.51); Absolute Neutrophil Count 3.4 X10^3/uL (2.0-7.7); Basophil# 0.03 X10^3/uL; Basophil% 0.6 % (0-1); Eosinophil# 0.14 X10^3/uL; Eosinophils% 2.6 % (0-5); Hemoglobin 12.2 g/dL (12.0-15.0); Lymphocyte # 1.41 X10^3/ul (0.83-4.51); Mean Corp Hgb Conc 31.3 g/dL (32-36); Mean Corpuscular Hgb 27.6 pg (27.0-32.0); Mean Corpuscular Volume 88.2 fL (81-99); Monocyte# 0.43 X10^3/uL; Monocyte% 7.9 % (0-10); NRBC Flagged by Analyzer 0 % (0-5); Neutrophil % 62.7 % (47-70); Platelet Count 181 K/mm3 (150-450); Red Blood Count 4.42 M/mm3 (4.2-5.4); White Blood Count 5.4 K/mm3 (4.4-11.0)
[2021-05-26 17:25] LABS: ALB/GLOB Ratio 0.9 RATIO (0.9-2.4); AST(SGOT) 55 U/L (15-37); Alanine Aminotransfer ALT/SGPT 109 U/L (13-56); Albumin, Serum 3.3 g/dL (3.2-5.0); Alkaline Phosphatase 67 U/L (45-117); Anion Gap 4 (5-15); BUN 10 mg/dL (7-18); BUN/Creat Ratio 13.4 RATIO (10-20); Calcium,Total 8.8 mg/dL (8.5-10.1); Chloride 104 mmol/L (98-107); Creatinine, Serum 0.75 mg/dL (0.55-1.02); EST Glomerular Filtration Rate 94 mL/min (>60); Est Glom Filt Rate - Afr Amer 113 mL/min (>60); Estimated Creatinine Clearance 114.29 ml/min; Globulin 3.6 g/dL (2.2-4.2); Glucose 100 mg/dL (74-106); Potassium 3.7 mmol/L (3.5-5.1); Protein, Total 6.9 g/dL (6.4-8.2); Sodium Level 138 mmol/L (136-145)
[2021-05-26 17:31] LABS: Alcohol, Blood (Medical)-Serum < 3.0 mg/dL
[2021-05-26 17:36] LABS: Internal QC Validated? YES +Cl - CLEAR BKGD; Pregnancy, Serum, hCG Quali. NEGATIVE Negative
--- NOTE | 2021-05-26 18:06 | PCM.HP.STD ---
[facility] - General General Date of Admission: 05/26/21 Date of Service: 05/26/21 Chief Complaint: Requesting detox from opiate withdrawal. [facility] Narrative OCTAVIO JOSÉ, is a 35 F with past medical history as mentioned below presented to the emergency room requesting admission for acute opiate withdrawal for medical stabilization. Patient stated that she has been using IV heroin over the last 13 years, intermittent, on and off but over the last 3 months, he has been using IV heroin daily. Her last use was this morning around 10 AM. She underwent detox days ago but she relapsed. She complained of body aches and pains, generalized, mild, associated with malaise and tremors and without aggravating or relieving factors. Also, she complained of nausea without vomiting. She denied abdominal pain or diarrhea. In the emergency department, her vital signs were stable. Routine blood work was unremarkable. LFT revealed slight elevated liver transaminases, bilirubin and alk phos was normal. Serum test was negative. Urine drug screen was positive for opioids, amphetamines and methamphetamines. Blood alcohol level was less than 3. She is being admitted for acute opioid withdrawal for medical stabilization. [facility] Medical History Substance abuse Home Medications metronidazole 500 mg PO TID #12 tab 03/12/19 [Rx Last Taken Unknown] valacyclovir 500 mg PO BID #8 tab 03/12/19 [Rx Last Taken Unknown] Allergy/AdvReac Type Severity Reaction Status Date / Time No Known Allergies Allergy Verified 05/26/21 15:17 Family History Other Alcoholism no significant family history no surgical history Social History (Updated 05/26/21 @ 18:[address] Shashi Ferrera MD) Smoking Status: Light Smoker (<10/day) details: Denied drinking alcohol. substance use type: heroin ROS Constitutional Constitutional: Reports malaise; Denies anorexia, chills, fatigue or fever(s) Eyes Eyes: Denies blurry vision, change in eye color, change in vision, double vision or eye pain ENT HEENT: Denies ear discharge, ear pain, epistaxis, headache(s), nasal congestion, post nasal drip or sore throat Cardiovascular Cardiovascular: Denies chest pain, dyspnea on exertion, edema, lightheadedness, orthopnea, palpitations, paroxysmal nocturnal dyspnea or syncope Respiratory/Chest Respiratory/Chest: Denies cough, dyspnea, hemoptysis, productive cough, shortness of breath at rest, shortness of breath with exertion or wheezing Gastrointestinal Gastrointestinal: Reports nausea; Denies abdominal pain, constipation, diarrhea, hematemesis, hematochezia, melena or vomiting Genitourinary Genitourinary: Denies burning urination, dysuria, hematuria, urinary hesitancy or urinary urgency Musculoskeletal Musculoskeletal: Reports arthralgias and myalgias; Denies back pain, joint pain, joint swelling or neck pain Neurologic Neurologic: Reports tremor(s); Denies confusion, dizziness, focal weakness, headache(s), numbness, paresthesias, seizures, tingling or vertigo Psychiatric Psychiatric: Denies anxiety, depression, hallucinations, homicidal ideation or suicidal ideation Endocrine Endocrinology: Denies change in body appearance, cold intolerance, heat intolerance, polydipsia or polyuria Hematologic/Lymphatic Hematologic/Lymphatic: Denies easy bleeding, easy bruising or lymphadenopathy Allergic/Immunologic Allergic/Immunologic: Denies itchy eyes, rhinitis, throat swelling, tongue swelling, hives, urticaria or wheezing Vital Signs Vital Signs Vital Signs: 05/26/21 15:16 Temperature 97 F L Temperature Source Temporal Pulse Rate 71 Respiratory Rate 16 Blood Pressure 125/77 H Blood Pressure Mean 93 Pulse Ox 98 Oxygen Delivery Method Room Air Weight Weight: 200 lb Body Mass Index (BMI) 28.7 Physical Exam Const alert, oriented x3, no apparent distress and no limitations General Appearance: cooperative HEENT normocephalic, head/scalp atraumatic, external ears normal, external nose normal and moist oral mucous membranes Eyes PERRL, EOMs intact bilaterally, conjunctivae normal and no scleral icterus General Eye: normal appearance of both eyes Neck no lymphadenopathy, supple, no meningeal signs, no JVD and no carotid bruits Lymph Lymphatic: no lymphadenopathy noted Resp normal respiratory effort, normal air movement and clear to auscultation bilaterally Auscultation: Negative for crackles, rales, rhonchi or wheezes Cardio regular rate, regular rhythm, S1 normal heart sound, S2 normal heart sound, no murmurs and no JVD GI normal to inspection, nondistended, normoactive bowel sounds, soft to palpation, non-tender and non-distended; Negative for hepatosplenomegaly Extremity normal to inspection, full ROM and no clubbing, cyanosis or edema Skin no rashes or lesions noted, no wounds and no petechiae Neuro oriented x3, CN's II-XII intact bilaterally and moves all extremities Sensorium / Orientation: alert Speech: speech normal Motor Exam: strength 5/5 throughout Psych mental status grossly normal, affect normal and denies hallucinations Results Lab / Micro Data Result Diagrams: 05/26/21 16:55 05/26/21 16:55 Labs: Laboratory Results - last 24 hr 05/26/21 05/26/21 05/26/21 15:47 16:55 16:55 WBC 5.4 RBC 4.42 Hgb 12.2 Hct 39.0 MCV 88.2 MCH 27.6 MCHC 31.3 L RDW Std Deviation 42.0 RDW Coeff of Nacho 13.0 Plt Count 181 MPV 11.0 Immature Gran % (Auto) 0.200 Neut % (Auto) 62.7 Lymph % (Auto) 26.0 Webster % (Auto) 7.9 Eos % (Auto) 2.6 Baso % (Auto) 0.6 Absolute Neuts (auto) 3.4 Absolute Lymphs (auto) 1.41 Nucleated RBC % 0 Sodium 138 Potassium 3.7 Chloride 104 Carbon Dioxide 30.0 Anion Gap 4 L BUN 10 Creatinine 0.75 Estim Creat Clear Calc 114.29 Est GFR (MDRD) Af Amer 113 Est GFR (MDRD) Non-Af 94 BUN/Creatinine Ratio 13.4 Glucose 100 Calcium 8.8 Total Bilirubin 0.40 AST 55 H ALT 109 H Alkaline Phosphatase 67 Total Protein 6.9 Albumin 3.3 Globulin 3.6 Albumin/Globulin Ratio 0.9 Serum , Qual Urine Opiates Screen POSITIVE H Urine Methadone Screen NEGATIVE Ur Barbiturates Screen NEGATIVE Ur Phencyclidine Scrn NEGATIVE Ur Amphetamines Screen POSITIVE H U Methamphetamin-MDMA POSITIVE H U Benzodiazepines Scrn NEGATIVE Urine Cocaine Screen NEGATIVE U Cannabinoids Screen NEGATIVE Ur Drug Screen Comment Ethyl Alcohol 05/26/21 05/26/21 16:55 16:55 WBC RBC Hgb Hct MCV MCH MCHC RDW Std Deviation RDW Coeff of Nacho Plt Count MPV Immature Gran % (Auto) Neut % (Auto) Lymph % (Auto) Webster % (Auto) Eos % (Auto) Baso % (Auto) Absolute Neuts (auto) Absolute Lymphs (auto) Nucleated RBC % Sodium Potassium Chloride Carbon Dioxide Anion Gap BUN Creatinine Estim Creat Clear Calc Est GFR (MDRD) Af Amer Est GFR (MDRD) Non-Af BUN/Creatinine Ratio Glucose Calcium Total Bilirubin AST ALT Alkaline Phosphatase Total Protein Albumin Globulin Albumin/Globulin Ratio Serum , Qual NEGATIVE Urine Opiates Screen Urine Methadone Screen Ur Barbiturates Screen Ur Phencyclidine Scrn Ur Amphetamines Screen U Methamphetamin-MDMA U Benzodiazepines Scrn Urine Cocaine Screen U Cannabinoids Screen Ur Drug Screen Comment Ethyl Alcohol < 3.0 Assessment & Plan Assessment/Plan (1) Acute opioid withdrawal: (2) Hepatitis C: (3) Chronic hepatitis B: (4) Hepatitis C antibody positive in blood: (5) Opioid dependence: PLAN: This is a 35 years old female patient presented to the emergency room requesting admission for acute opiate withdrawal for medical stabilization. #1 acute opiate withdrawal: Urine drug screen reviewed as above. Patient underwent detox program 2 days ago but relapsed. Routine blood work reviewed as above. Plan: Admit to MedSurg floor, initiate opioid withdrawal protocol with tapering Subutex, as needed Tylenol, Catapres, Bentyl, Neurontin, Vistaril, methocarbamol, Imodium, Zofran and trazodone, consult with 80 program. #2 chronic otitis media/chronic hepatitis C: Liver transaminases are slight elevated, bilirubin and alk phos are normal. #3 tobacco abuse: Declined nicotine patch. #4 DVT prophylaxis: Low-risk patient, no prophylaxis indicated. This note was generated with [employer] dictation software. It may contain incorrect words, spelling, and punctuation that were not noted in checking the note before signing. Charges/Coding Visit Charges Inpatient E&M: 47240 Init Hosp L2
[2021-05-26 18:51] VITALS: BP 125/77; PULSE 71; RESP 16; TEMP 36.1; O2SAT 98
[2021-05-26 18:52] VITALS: BP 125/77; PULSE 71; RESP 16; TEMP 36.1; O2SAT 98; BMI 29.2
[2021-05-26 18:58] VITALS: BP 112/77; PULSE 77; RESP 16; TEMP 36.6; O2SAT 98
[2021-05-26] MEDS: Gabapentin 300 MG Capsule PO (19:16)
[2021-05-26] MEDS: Buprenorphine HCl 2 MG TAB.SUBL SL (19:16)
[2021-05-26] MEDS: cloNIDine HCl 0.1 MG Tablet PO (19:16)
[2021-05-26] MEDS: Dicyclomine 10 MG Capsule 20 MG PO (22:46)
[2021-05-26] MEDS: Methocarbamol 750 MG Tablet 1500 MG PO (22:46)
[2021-05-26] MEDS: hydrOXYzine PAM 25 MG Capsule 50 MG PO (22:47)
[2021-05-26] MEDS: Ondansetron 8 MG Tablet PO (22:47)
[2021-05-26] MEDS: traZODone 100 MG Tablet PO (22:50)
[2021-05-26 22:55] VITALS: BP 106/81; PULSE 58; RESP 20; TEMP 36.7; O2SAT 100
[2021-05-27 03:19] VITALS: BP 95/61; PULSE 55; RESP 16; TEMP 36.6; O2SAT 96
[2021-05-27] MEDS: Buprenorphine HCl 2 MG TAB.SUBL SL ×3 (03:22→18:49)
[2021-05-27] MEDS: Methocarbamol 750 MG Tablet 1500 MG PO ×2 (07:53→15:59)
[2021-05-27] MEDS: Gabapentin 300 MG Capsule PO ×2 (07:53→15:59)
[2021-05-27 07:56] VITALS: BP 90/59; PULSE 61; RESP 16; TEMP 36.7; O2SAT 94
[2021-05-27 10:59] VITALS: BP 93/51; PULSE 60; RESP 16; TEMP 36.9; O2SAT 96
--- NOTE | 2021-05-27 14:20 | PCM.PN.HOSP ---
Subjective Subjective Patient was seen and examined. Denied any new complaints. Objective Data Objective Data Vital Signs: Vital Signs Temp Pulse Resp BP Pulse Ox 98.4 F 60 16 93/51 L 96 05/27/21 10:59 05/27/21 10:59 05/27/21 10:59 05/27/21 10:59 05/27/21 10:59 Oxygen Delivery Method Room Air Weight: 92.578 kg Body Mass Index (BMI) 29.2 Intake & Output: Intake and Output for Last 24 Hours 05/25/21 05/26/21 05/27/21 23:59 23:59 23:59 Intake Total 240 / 240 Balance 240 / 240 Lab / Micro Data Result Diagrams: 05/26/21 16:55 05/26/21 16:55 Labs: Laboratory Results - last 24 hr 05/26/21 05/26/21 05/26/21 15:47 16:55 16:55 WBC 5.4 RBC 4.42 Hgb 12.2 Hct 39.0 MCV 88.2 MCH 27.6 MCHC 31.3 L RDW Std Deviation 42.0 RDW Coeff of Nacho 13.0 Plt Count 181 MPV 11.0 Immature Gran % (Auto) 0.200 Neut % (Auto) 62.7 Lymph % (Auto) 26.0 [place] % (Auto) 7.9 Eos % (Auto) 2.6 Baso % (Auto) 0.6 Absolute Neuts (auto) 3.4 Absolute Lymphs (auto) 1.41 Nucleated RBC % 0 Sodium 138 Potassium 3.7 Chloride 104 Carbon Dioxide 30.0 Anion Gap 4 L BUN 10 Creatinine 0.75 Estim Creat Clear Calc 114.29 Est GFR (MDRD) Af Amer 113 Est GFR (MDRD) Non-Af 94 BUN/Creatinine Ratio 13.4 Glucose 100 Calcium 8.8 Total Bilirubin 0.40 AST 55 H ALT 109 H Alkaline Phosphatase 67 Total Protein 6.9 Albumin 3.3 Globulin 3.6 Albumin/Globulin Ratio 0.9 Serum , Qual Urine Opiates Screen POSITIVE H Urine Methadone Screen NEGATIVE Ur Barbiturates Screen NEGATIVE Ur Phencyclidine Scrn NEGATIVE Ur Amphetamines Screen POSITIVE H U Methamphetamin-MDMA POSITIVE H U Benzodiazepines Scrn NEGATIVE Urine Cocaine Screen NEGATIVE U Cannabinoids Screen NEGATIVE Ur Drug Screen Comment Ethyl Alcohol 05/26/21 05/26/21 16:55 16:55 WBC RBC Hgb Hct MCV MCH MCHC RDW Std Deviation RDW Coeff of Nacho Plt Count MPV Immature Gran % (Auto) Neut % (Auto) Lymph % (Auto) [place] % (Auto) Eos % (Auto) Baso % (Auto) Absolute Neuts (auto) Absolute Lymphs (auto) Nucleated RBC % Sodium Potassium Chloride Carbon Dioxide Anion Gap BUN Creatinine Estim Creat Clear Calc Est GFR (MDRD) Af Amer Est GFR (MDRD) Non-Af BUN/Creatinine Ratio Glucose Calcium Total Bilirubin AST ALT Alkaline Phosphatase Total Protein Albumin Globulin Albumin/Globulin Ratio Serum , Qual NEGATIVE Urine Opiates Screen Urine Methadone Screen Ur Barbiturates Screen Ur Phencyclidine Scrn Ur Amphetamines Screen U Methamphetamin-MDMA U Benzodiazepines Scrn Urine Cocaine Screen U Cannabinoids Screen Ur Drug Screen Comment Ethyl Alcohol < 3.0 Physical Exam Narrative Physical exam: General: Alert, Oriented x3, Cooperative, No apparent distress, Well developed HEENT: Atraumatic Oral: Moist Mucosa Neck: Supple Lungs: Clear to auscultation Cardiovascular: HS I+II, regular, no murmurs Abdomen: Bowel Sounds Present, Soft, Non Tender Extremities: No edema Skin: No rashes, No breakdown Neurological: Grossly intact Psych/Mental Status: Appropriate Assessment & Plan Assessment/Plan (1) Acute opioid withdrawal: (2) Hepatitis C: QUALIFIERS: Viral hepatitis chronicity: chronic Hepatic coma status: without hepatic coma Qualified Code(s): B18.2 - Chronic viral hepatitis C (3) Chronic hepatitis B: (4) Opioid dependence: QUALIFIERS: Substance use status: uncomplicated Qualified Code(s): F11.20 - Opioid dependence, uncomplicated PLAN: 1. Acute opioid withdrawal, improving, continue Suboxone withdrawal protocol 2. Chronic hepatitis B and C, needs to follow-up in the outpatient 3. Nicotine dependence, refused replacement Charges/Coding Visit Charges Inpatient E&M: 59102 Subs Hosp L2
[2021-05-27 15:57] VITALS: BP 140/74; PULSE 66; RESP 16; TEMP 36.7; O2SAT 97
[2021-05-27] MEDS: cloNIDine HCl 0.1 MG Tablet PO (15:59)
[2021-05-27 23:00] VITALS: BP 113/69; PULSE 56; RESP 16; TEMP 37.1; O2SAT 97
[2021-05-28] MEDS: Buprenorphine HCl 2 MG TAB.SUBL SL ×3 (03:32→20:06)
[2021-05-28 05:00] VITALS: BP 110/50; PULSE 77; RESP 16; TEMP 36.9; O2SAT 94
[2021-05-28] MEDS: Gabapentin 300 MG Capsule PO ×2 (08:34→20:21)
[2021-05-28] MEDS: Methocarbamol 750 MG Tablet 1500 MG PO ×2 (08:34→15:43)
[2021-05-28] MEDS: cloNIDine HCl 0.1 MG Tablet PO (08:34)
[2021-05-28] MEDS: Ondansetron 8 MG Tablet PO ×2 (08:34→20:21)
[2021-05-28 08:37] VITALS: BP 125/69; PULSE 65; RESP 16; TEMP 36.9; O2SAT 96
--- NOTE | 2021-05-28 14:07 | PCM.PN.HOSP ---
Subjective Subjective Patient was seen and examined. No new complaints. No acute events overnight Objective Data Objective Data Vital Signs: Vital Signs Temp Pulse Resp BP Pulse Ox 98.5 F 65 16 125/69 H 96 05/28/21 08:37 05/28/21 08:37 05/28/21 08:37 05/28/21 08:37 05/28/21 08:37 Oxygen Delivery Method Room Air Weight: 92.578 kg Body Mass Index (BMI) 29.2 Intake & Output: Intake and Output for Last 24 Hours 05/26/21 05/27/21 05/28/21 23:59 23:59 23:59 Intake Total 540 / 540 Balance 540 / 540 Lab / Micro Data Result Diagrams: 05/26/21 16:55 05/26/21 16:55 Physical Exam Narrative Physical exam: General: Alert, Oriented x3, Cooperative, No apparent distress, Well developed HEENT: Atraumatic Oral: Moist Mucosa Neck: Supple Lungs: Clear to auscultation Cardiovascular: HS I+II, regular, no murmurs Abdomen: Bowel Sounds Present, Soft, Non Tender Extremities: No edema Skin: No rashes, No breakdown Neurological: Grossly intact Psych/Mental Status: Appropriate Assessment & Plan Assessment/Plan (1) Acute opioid withdrawal: (2) Hepatitis C: QUALIFIERS: Viral hepatitis chronicity: chronic Hepatic coma status: without hepatic coma Qualified Code(s): B18.2 - Chronic viral hepatitis C (3) Chronic hepatitis B: (4) Opioid dependence: QUALIFIERS: Substance use status: uncomplicated Qualified Code(s): F11.20 - Opioid dependence, uncomplicated PLAN: 1. Acute opioid withdrawal, improving, continue Suboxone withdrawal protocol 2. Chronic hepatitis B and C, needs to follow-up in the outpatient 3. Nicotine dependence, refused replacement Charges/Coding Visit Charges Inpatient E&M: 50486 Subs Hosp L2
[2021-05-28 14:37] VITALS: BP 109/75; PULSE 58; RESP 16; TEMP 36.7; O2SAT 94
[2021-05-28] MEDS: hydrOXYzine PAM 25 MG Capsule 50 MG PO (15:43)
[2021-05-28 20:37] VITALS: BP 95/60; PULSE 79; RESP 16; TEMP 37.3; O2SAT 98
[2021-05-29 06:30] VITALS: BP 101/61; PULSE 70; RESP 16; TEMP 36.8; O2SAT 98
[2021-05-29] MEDS: Buprenorphine HCl 2 MG TAB.SUBL SL (06:45)
--- NOTE | 2021-05-29 10:09 | ADDICTION ---
This ad copy writer attempted to meet with PT. PT refused to meet with this ad copy writer. No assessments or d/c plan completed. [facility] SW notified.
--- NOTE | 2021-05-29 15:40 | PCM.DC ---
Discharge Instructions Diet Discharge Diet: No restrictions Activity Discharge Activity: Return to Normal Activity Follow Up Care Please Follow Up With: Your physician When: 1-2 weeks after discharge Test Results: Test results from this visit will be discussed in further detail at your follow-up appointment, if applicable. Discharge Plan Admission Admit Date/Time: 05/26/21 18:04 Primary Reason for Your Visit: detox services Attending Provider: Geronimo Joseph Primary Care Provider: Care Physician,No Primary Instructions Forms: Work / School Excuse Discharge Orders/Prescriptions Prescriptions: Discontinued metronidazole 500 MG tablet 500 mg PO TID Qty: 12 RF: 0 valacyclovir 500 MG tablet 500 mg PO BID Qty: 8 RF: 0 Referrals / Follow Up: Care Physician,No Primary [Primary Care Provider] - Disposition Disposition (needs filled in before D/C Order can be placed): Home, Self Care
--- NOTE | 2021-05-31 18:08 | PCM.DC.SUM ---
Providers Date of Admission: 05/26/21 Date of Discharge: 05/29/21 Primary Care Physician: No Primary Care Phys Reason For Visit: ACUTE OPIOID WITHDRAWAL Diagnosis Discharge Diagnosis (1) Acute opioid withdrawal: Status: Acute Code(s): F11.23 - Opioid dependence with withdrawal (2) Hepatitis C: Status: Chronic Code(s): B19.20 - Unspecified viral hepatitis C without hepatic coma Qualifiers: Viral hepatitis chronicity: chronic Hepatic coma status: without hepatic coma Qualified Code(s): B18.2 - Chronic viral hepatitis C (3) Chronic hepatitis B: Status: Chronic Code(s): B18.1 - Chronic viral hepatitis B without delta-agent (4) Opioid dependence: Status: Chronic Code(s): F11.20 - Opioid dependence, uncomplicated Qualifiers: Substance use status: uncomplicated Qualified Code(s): F11.20 - Opioid dependence, uncomplicated Plan: Discharge diagnosis: #1 acute opioid withdrawal #2 chronic opiate abuse #3 hepatitis C-by history #4 hepatitis B-by history #5 polydrug abuse including methamphetamines Hospital Course Operations None Procedures None Summary of Care Provided Minutes Spent on Discharge: 32 Hospital Course: 35-year-old white female was seen in the emergency room at [facility] requesting services for opiate detox, talk screen was positive for methamphetamines and amphetamines as well as opioids. Patient's AST and ALT were elevated on admission. Patient has a past history of positive hep B and C. Patient was admitted to [place] [id number], orders were entered using the opiate detox order set, she was seen in consultation by addiction social insurance administrator but patient refused to to meet with addiction social insurance administrator although she denied this to this examiner. No assessments or discharge planning was completed. Patient did not have any untoward events during her hospitalization. On 05/29/2021, patient was seen and examined: On examination she appeared in good health and spirits, she does not appear to be in any distress. Vital signs as documented. Skin warm and dry and without overt rashes. Neck without JVD, thyroid appears normal, trachea is midline, neck is supple. Lungs clear, normal air movement was noted. Heart exam notable for regular rhythm, normal sounds and absence of murmurs, rubs or gallops. Abdomen unremarkable and without evidence of organomegaly, masses, or abdominal aortic enlargement, bowel sounds are present in all 4 quadrants, no abdominal tenderness was noted. Extremities nonedematous, no cyanosis was noted, no clubbing was noted. Neuro: Cranial nerves II through XII are grossly intact, no focal motor deficits were noted, sensation to light touch and pinprick is intact, motor exam 5/5 throughout. Psych: Patient is alert and oriented x3, she does not appear anxious or depressed, she does not appear agitated. Patient was discharged home in stable condition on 05/29/2021, this examiner does not feel the patient made a genuine attempt at reconciling her drug addiction by coming into the hospital. Weight / BMI Weight Weight: 92.578 kg Body Mass Index (BMI) 29.2 ABG / Lab / Microbiology Data Result Diagrams: 05/26/21 16:55 05/26/21 16:55 D/C Instructions Discharge Diet: No restrictions Please Follow Up With: Your physician When: 1-2 weeks after discharge Meaningful Use Info Meaningful Use Diagnoses (Choose all that apply): None applicable Discharge Plan Admission Admit Date/Time: 05/26/21 18:04 Primary Reason for Your Visit: detox services Attending Provider: Geronimo Joseph Primary Care Provider: Care Physician,No Primary Instructions Forms: Work / School Excuse Discharge Orders/Prescriptions Prescriptions: Discontinued metronidazole 500 MG tablet 500 mg PO TID Qty: 12 RF: 0 valacyclovir 500 MG tablet 500 mg PO BID Qty: 8 RF: 0 Referrals / Follow Up: Care Physician,No Primary [Primary Care Provider] - Disposition Disposition (needs filled in before D/C Order can be placed): Home, Self Care Charges/Coding Visit Charges Inpatient E&M: 33503 Disch Hosp
== END 2021-05-29 16:22 | disposition home or self-care (01) ==
LOC: ED 17:55 → MS3 05-27 07:12
PROVIDERS: Emergency Medicine; Admitting Provider Hospitalist; Emergency Provider Student in an Organized Health Care Education/Training Program; Visit Provider Internal Medicine
DX: F11.23 Opioid dependence with withdrawal (principal); F17.210 Nicotine dependence, cigarettes, uncomplicated; B18.1 Chronic viral hepatitis B without delta-agent; B18.2 Chronic viral hepatitis C
CPT/HCPCS: 80053; 80307; 82077; 84703; 85025; 99283; 99406; H0012